=== PATIENT | male | born 1950 | race Hispanic/Latino ===

== ENCOUNTER 2017-05-09 06:16 | Day surgery (SDC) | payer MEDICARE ==
[~2017-05-09] VITALS: Ht 182.9 cm; Wt 106.7 kg
[~2017-05-09 06:16] MED LIST: AMIO200T2 PO; APIX5TAB PO; CITA-107 PO; DEXL60CA3 PO; LOVA40TA2 PO; METO100T14 PO; OMEP40CA37 PO
[2017-05-09] MEDS ORDERED: SODIUM CHLORIDE 0.9% 1000ML 1,000 ML IV ONE (06:24)
[2017-05-09 06:47] VITALS: BP 137/83
[2017-05-09] MEDS ORDERED: FENTANYL CITRATE PF 50 MCG/1 ML 2ML VIAL ONE (07:27)
[2017-05-09] MEDS ORDERED: PROPOFOL 10 MG/ML 20ML VIAL IV ONE ×2 (07:27→07:28)
[2017-05-09] MEDS ORDERED: GLYCOPYRROLATE 0.2 MG/ML 5 ML VIAL ONE (07:28)
[2017-05-09 07:44] VITALS: BP 98/66
== END 2017-05-09 08:20 ==
LOC: ENDO 06:16 → DAH 06:16 → ENDO 08:20
PROVIDERS: ATTEND Internal Medicine Gastroenterology
DX: K21.9 Gastro-esophageal reflux disease without esophagitis (principal); K29.50 Unspecified chronic gastritis without bleeding; K44.9 Diaphragmatic hernia without obstruction or gangrene; I10 Essential (primary) hypertension; E78.5 Hyperlipidemia, unspecified; I48.91 Unspecified atrial fibrillation; Z68.32 Body mass index [BMI] 32.0-32.9, adult; Z79.899 Other long term (current) drug therapy
CPT/HCPCS: 43239; 88305; 88312; 88342; 93005; A4606; J2704 ×2; J3010; J3490; J7030

== ENCOUNTER 2019-06-18 08:56 | Day surgery (SDC) | payer OTHER ==
[~2019-06-18] VITALS: Ht 182.9 cm; Wt 102.1 kg
[2019-06-18] VITALS (8 sets, daily range): BP systolic 97–139; BP diastolic 47–84
[~2019-06-18 08:56] MED LIST changes: -AMIO200T2 PO; -CITA-107 PO; -DEXL60CA3 PO; +FAMO40TA75 PO; +METO-391 PO; -METO100T14 PO; +OMEP40CA13 PO; -OMEP40CA37 PO; +SODIUM CHLORIDE 0.9% 1000ML 1,000 ML IV ONE
[2019-06-18] MEDS ORDERED: CHLO25TA3 PO (10:02)
[2019-06-18] MEDS ORDERED: PROPOFOL 10 MG/ML 20ML VIAL IV ONE (10:23)
== END 2019-06-18 11:30 | disposition home or self-care (01) ==
LOC: ENDO 08:56 → DAH 08:56 → ENDO 11:30
PROVIDERS: ATTEND Internal Medicine Gastroenterology
DX: J31.2 Chronic pharyngitis (principal); K44.9 Diaphragmatic hernia without obstruction or gangrene; K21.9 Gastro-esophageal reflux disease without esophagitis; I10 Essential (primary) hypertension; K59.00 Constipation, unspecified; J02.9 Acute pharyngitis, unspecified; I48.20 Chronic atrial fibrillation, unspecified; E78.5 Hyperlipidemia, unspecified; Z86.010 Personal history of colon polyps; Z98.890 Other specified postprocedural states; Z79.01 Long term (current) use of anticoagulants; Z79.899 Other long term (current) drug therapy; K29.50 Unspecified chronic gastritis without bleeding; K22.8 Other specified diseases of esophagus
CPT/HCPCS: 43239; 91035; A4215; A4221; A4222; A4223; A4606; A4620; A4649; A4663; J2704; J7030